=== PATIENT | male | born 1940 | race Caucasian/White ===

== ENCOUNTER 2018-10-11 14:16 | Emergency (ER) | payer MEDICARE ==
--- NOTE | 2018-10-11 17:01 | EDM.PDOC ---
ED HPI GENERAL MEDICAL PROBLEM - General Chief Complaint: General Stated Complaint: CHEST PAINS, LEFT SIDE LEG PAINS, SOB Time Seen by Provider: 10/11/18 15:52 Source of Information: Reports: Patient History Limitations: Reports: Other (This very difficult to get a clear story about what happened to this man or where he is hurting.) - History of Present Illness INITIAL COMMENTS - FREE TEXT/NARRATIVE: That sometime this man fell just recently he complains of pain to the distal left thigh. It's not clear if there may be pain in the left hip but each time he complains of pain he grabs his distal left thigh. He's not having any kind of [place] or rib pain left leg Pain Score (Numeric/FACES): 4 - Related Data Allergies Allergy/AdvReac Type Severity Reaction Status Date / Time No Known Allergies Allergy Verified 10/11/18 15:00 Home Meds: Home Meds Aspirin/Calcium Carbonate/Mag [Aspirin Buffered 325 mg Tab] 325 mg PO DAILY [History] Ibuprofen [Motrin] 400 mg PO QID PRN 06/08/13 [History] Past Medical History HEENT History: Reports: Cataract Cardiovascular History: Reports: [place] Musculoskeletal History: Reports: Other (See Below) Other Musculoskeletal History: knee pain Social & Family History - Tobacco Use Smoking Status *Q: Current Every Day Smoker Years of Tobacco use: 60 Packs/Tins Daily: 1 - Alcohol Use Days Per Week of Alcohol Use: 7 Number of Drinks Per Day: 4 Total Drinks Per Week: 28 - Recreational Drug Use Recreational Drug Use: No ED ROS GENERAL - Review of Systems Review Of Systems: ROS reveals no pertinent complaints other than HPI. ED EXAM, GENERAL - Physical Exam Exam: See Below Exam Limited By: No Limitations General Appearance: Alert, Thin Eye Exam: Bilateral Eye: Normal Inspection Respiratory/Chest: Lungs Clear Cardiovascular: Regular Rate, Rhythm Extremities: Other (No definite tenderness to the left thigh but at times is manipulate his left hip in the he seems to have a lot of pain in the distal hamstring muscles and reaches and grabs them.) Neurological: Alert Psychiatric: Normal Affect Skin Exam: Warm, Dry, Other (Extremely sun damaged skin) Course - Vital Signs Last Recorded V/S: Last Vital Signs Temp 36.8 C 10/11/18 14:59 Pulse 81 10/11/18 14:59 Resp 15 10/11/18 15:10 BP 145/89 H 10/11/18 15:10 Pulse Ox 99 10/11/18 14:59 - Orders/Labs/Meds Orders: Active Orders 24 hr Category Date Time Status Femur Min 2V Lt [CR] Stat Exams 10/11/18 16:06 Ordered Pelvis 1V or 2V [CR] Stat Exams 10/11/18 16:06 Ordered - Re-Assessments/Exams Free Text/Narrative Re-Assessment/Exam: 10/11/18 17:02 x-rays were ordered left femur and pelvis. However prior to receiving any x- rays the patient just decided that he was through and wanted to go home and he left the ER AGAINST MEDICAL ADVICE Departure - Departure Time of Disposition: 17:02 Disposition: Against Medical Advice 07 Clinical Impression: Left thigh pain - Discharge Information Referrals: PCP,None [Primary Care Provider] - Forms: ED Department Discharge - My Orders Last 24 Hours: My Active Orders 10/11/18 16:06 Femur Min 2V Lt [CR] Stat Pelvis 1V or 2V [CR] Stat - Assessment/Plan Last 24 Hours: My Active Orders 10/11/18 16:06 Femur Min 2V Lt [CR] Stat Pelvis 1V or 2V [CR] Stat
== END 2018-10-11 16:53 | disposition left against medical advice (07) ==
LOC: JP.ED 14:16
DX: M79.652 Pain in left thigh (principal); I25.2 Old myocardial infarction; F17.210 Nicotine dependence, cigarettes, uncomplicated; Z79.82 Long term (current) use of aspirin
CPT/HCPCS: 99282; 99283